=== PATIENT | male | born 1970 | race Caucasian/White ===

== ENCOUNTER 2020-02-29 12:24 | Emergency (ER) | payer SELFPAY ==
[~2020-02-29 12:24] MED LIST: Sodium Chloride 0.9% 1,000 ML BAG ONE
--- NOTE | 2020-02-29 13:11 | CT ---
CT Brain WO Con History: Injury Comparison: None. Findings: Minimally comminuted right and left superior nasal bone fractures. Fracture of the osseous nasal septum. Normal location of the temporomandibular joints. A mastoids are clear. The zygoma and zygomatic arches are intact. Pterygoid plates are intact. Mucosal sinus thickening of the right maxillary sinus. The medial orbital haque, lateral orbital haque, orbital floors and orbital roofs are intact. No acute hemorrhage or infarct. No midline shift or mass effect. Globes are intact. Impression: 1. No acute posttraumatic intracranial sequelae. 2. Comminuted fractures of the left and right nasal bones along with a very large laceration of the m idline soft tissue nasal bridge extending to the left nasal alar cartilage with subcutaneous gas and radial opaque debris. 3. Fracture of the osseous nasal septum.
--- NOTE | 2020-02-29 13:12 | CT ---
EXAM: CT cervical spine PROVIDED CLINICAL HISTORY: Injury. TECHNIQUE: Contiguous axial CT images are obtained through the cervical spine from the skull base to the T2-3 le hilton. Sagittal and coronal reformatted images are provided. COMPARISON: None FINDINGS: Scattered degenerative changes are seen throughout cervical spine with osteophyte formation and narro wing of the intervertebral disc spaces at multiple levels. Mild/moderate bilateral neural foraminal narrowing is seen at the C6-7 level and on the left at the C4-5 level. No fracture or traumatic subluxation is seen involving the cervical spine. No prevertebral soft tissue swelling apparent. Visualized lung apices appear clear. Visualized thyroid gland demonstrates a grossly normal nonenhanced CT appearance. IMPRESSION: Degenerative changes in the cervical spine, no fracture or traumatic subluxation is seen..
[2020-02-29] MEDS ORDERED: Sodium Chloride 0.9% 1,000 ML ONE (13:16)
[2020-02-29] MEDS ORDERED: CEFAZOLIN 1 GM VIAL ONE (13:16)
[2020-02-29] MEDS ORDERED: Sodium Chloride 0.9% 100 ML ONE (13:16)
[2020-02-29] MEDS ORDERED: Boostrix 0.5 ML (Tdap) VIAL ONE (13:16)
--- NOTE | 2020-02-29 13:21 | CT ---
CT Facial Bones WO Con History: Injury Comparison: None. Findings: Mandible is intact. Normal location of the temporomandibular joints. Superficial debris kaitlyn ng the mental soft tissues of the chin below the lower lip. No mandibular fracture. Pterygoid plates are intact. Fractures of the left and right nasal bones, osseous nasal septum, and right frontal process of maxil la. There is also fracture of the nasal spine of maxilla. The medial orbital haque and lateral orbital haque are intact. Serrated appearance of the perpendicular plate of the ethmoid. Globes are intact. No retrobulbar hematoma. Soft tissue laceration near the midline anterior soft tissues of the nose extending to the left nasal alar cartilage. Impression: 1. Mildly comminuted left and right nasal bone fractures along with fracture the sagittal plane along the right frontal process of the maxilla. 2. Fracture of the osseous nasal septum extending into the ethmoid perpendicular plate which has a se rrated appearance. 3. Superficial debris along the premental soft tissues the chin and just below the lower lip. 4. Large laceration of the anterior midline nose extending through the left nasal alar cartilage with superficial and deep debris. 5. Mildly comminuted fracture anterior nasal spine of maxilla. 6. Partial absence through the [place] right maxillary lateral incisor with loosening around the root t ip.
[2020-02-29 13:34] LABS: ALT (SGPT) 23 U/L (8-55); AST (SGOT) 23 U/L (5-34); Albumin 4.4 g/dL (3.5-5.0); Alcohol Less than 10 mg/dL (Less than 10); Alkaline Phosphatase 91 U/L (40-110); Anion Gap 19 mmol/L (10-20); BUN (Urea Nitrogen) 11 mg/dL (8.9-20.6); Bilirubin, Total 0.4 mg/dL (0.2-1.2); Calc. Creatinine Clearance 0 mL/min (70-130); Calcium 9.1 mg/dL (7.8-10.44); Carbon Dioxide 23 mmol/L (22-29); Chloride 103 mmol/L (98-107); Globulin 2.8 g/dL (2.4-3.5); Glucose 94 mg/dL (70-105); Potassium 3.8 mmol/L (3.5-5.1); Protein, Total 7.2 g/dL (6.0-8.3)
[2020-02-29 13:35] LABS: Hemoglobin 15.5 g/dL (14.0-18.0); Mean Corpuscular HGB CONC 32.6 g/dL (32.0-36.0); Mean Corpuscular Hemoglobin 32.1 pg (27.0-31.0); Mean Corpuscular Volume 98.3 fL (78.0-98.0); Mean Platelet Volume 6.4 fL (7.4-10.4); Platelet Count 364 thou/uL (130-400); RBC Distribution Width 12.2 % (11.5-14.5); Red Blood Cell (RBC) Count 4.82 mill/uL (4.70-6.10); White Blood Cell (WBC) Count 17.7 thou/uL (4.8-10.8)
[2020-02-29 13:36] LABS: Band 2 % (5-11); Lymphocytes 5 % (21-51); MDiff Complete? YES; Monocytes 4 % (0-10); Neutrophil 77 % (42-75); Platelet Morphology Comment Appears Adequate; RBC Morphology Normal; Reactive Lymphocytes 12 % (0-10)
[2020-02-29 13:41] LABS: Sodium 141 mmol/L (136-145)
[2020-02-29 15:28] LABS: SARS-CoV-2 NAA Rapid Test Not Detected (NotDetected)
--- NOTE | 2020-02-29 16:12 | RAD ---
XR Chest 1 View Portable HISTORY: Injury, chest pain COMPARISON: None FINDINGS: The heart size is normal. The lungs are well expanded without focal areas of consolidation, pneumothorax or pleural effusions. IMPRESSION: No radiographic evidence of acute cardiopulmonary process.
--- NOTE | 2020-02-29 16:23 | RAD ---
Exam: XR Elbow Rt 4 View STANDARD HISTORY: Injury to right elbow. COMPARISON: None FINDINGS: No acute fracture, dislocation, or other acute osseous abnormality is identified. IMPRESSION: No acute osseous abnormality is identified.
[2020-02-29] MEDS ORDERED: Lidocaine 2% w/Epinephrine 1:200K 20 ML VIAL ONE (17:26)
[2020-02-29] MEDS ORDERED: Bacitracin Zinc Ointment 30 gm TUBE ONE (17:27)
[2020-02-29] MEDS ORDERED: AFRIN NASAL MIST 15 ML BOT ONE (17:27)
[2020-02-29] MEDS ORDERED: Midazolam HCl 2 mg/2 ml Vial ONE (17:30)
[2020-02-29] MEDS ORDERED: Fentanyl 100 MCG/2 ML VIAL ONE (17:30)
== END 2020-02-29 15:27 | disposition short-term general hospital (02) ==
LOC: MADERS 12:24
DX: S02.2XXA Fracture of nasal bones, initial encounter for closed fracture (principal); S06.0X1A Concussion with loss of consciousness of 30 minutes or less, initial encounter; S01.21XA Laceration without foreign body of nose, initial encounter; S02.401A Maxillary fracture, unspecified side, initial encounter for closed fracture; W11.XXXA Fall on and from ladder, initial encounter
CPT/HCPCS: 0240U; 70450; 70486; 71045; 72125; 80053; 80307; 85025; 90471; 90715; 93005; 94760; 96361; 96365; J0690; J2250; J3010; J3490; J7050